=== PATIENT | female | born 1980 | race Caucasian/White ===

== ENCOUNTER → 2019-10-16 | Outpatient (CLI) | payer OTHER ==
--- NOTE | 2019-10-16 13:58 | KCIC ---
2 views chest and right-sided rib study dated 10/16/2019. No comparison available. CLINICAL INDICATION: Right-sided rib pain. FINDINGS: PA and lateral views obtained. Heart and mediastinal contours within normal limits. Lungs are somewhat hyperinflated but otherwise clear. No consolidation or pleural effusion. No pneumothorax. Dedicated views of the right-sided ribs show no evidence of displaced right rib fracture. No acute bony abnormality. IMPRESSION: 1. No acute radiographic abnormality. No evidence of displaced right rib fracture. Electronically signed by: Eran Goodman MD (10/16/2019 1:55 PM) [id number]
== END | disposition home or self-care (01) ==
LOC: KCIC 10:45
PROVIDERS: ATTEND Physician Assistant Medical
DX: R07.81 Pleurodynia (principal)
CPT/HCPCS: 71046; 71100

== ENCOUNTER → 2021-02-23 | Outpatient (CLI) | payer OTHER ==
--- NOTE | 2021-02-23 17:31 | KCIC ---
EXAM: Right hip and pelvis, 2 views. HISTORY: Pain. COMPARISON: None. FINDINGS: A frontal view of the pelvis and frog-leg view of the right hip are obtained. There is no f racture, dislocation or subluxation. There is a small sclerotic lesion within the right femoral neck. There is degenerative change at the lumbosacral junction. There is an incidental contraceptive devic e or pessary within the vagina. IMPRESSION: 1. No acute osseous finding. 2. Small sclerotic lesion within the right femoral neck. In the absence of known malignancy, this lik juliette a bone [place]. Electronically signed by: Colleen Muñoz MD (02/23/2021 5:29 PM) [facility]
== END ==
LOC: KCIC 11:41
PROVIDERS: ATTEND Family Medicine
DX: M89.8X8 Other specified disorders of bone, other site (principal); M25.551 Pain in right hip; M47.817 Spondylosis without myelopathy or radiculopathy, lumbosacral region
CPT/HCPCS: 73501

== ENCOUNTER 2021-03-31 10:02 | Emergency (ER) | payer MEDICAID, OTHER ==
[~2021-03-31] VITALS: Ht 165.1 cm; Wt 62.2 kg
--- NOTE | 2021-03-31 10:32 | PHYS DOC ---
General Adult EDM: Chief Complaint: RIB PAIN HPI: HPI: Patient is a 40 year old female who presents to ER due to right-sided chest pain that been going on for 3 weeks. Patient described pain as sharp stabbing pain, radiated to her right shoulder. Patient is a smoker, she is also on hormone replacement therapy. Patient denies any recent travel or operation, denies history of blood clot disorder. Patient has no history of diabetic or hypertension. The chest pain is worse with breathing or cough. Review of Systems: Review of Systems: Constitutional: Denies fever or chills. [] Eyes: Denies change in visual acuity. [] HENT: Denies nasal congestion or sore throat. [] Respiratory: Denies cough or shortness of breath. [] Cardiovascular: Positive for chest pain, no edema GI: Denies abdominal pain, nausea, vomiting, bloody stools or diarrhea. [] : Denies dysuria. [] Musculoskeletal: Denies back pain or joint pain. [] Integument: Denies rash. [] Neurologic: Denies headache, focal weakness or sensory changes. [] Endocrine: Denies polyuria or polydipsia. [] Lymphatic: Denies swollen glands. [] Psychiatric: Denies depression or anxiety. [] Heart Score: C/O Chest Pain: Yes HEART Score for Chest Pain: HEART Score for Chest Pain Response (Comments) Value History Slighlty/Non-Suspicious 0 ECG Normal 0 Age < 45 0 Risk Factors No Risk Factors 0 Troponin < Normal Limit 0 Total 0 Risk Factors: Risk Factors: DM, Current or recent (<one month) smoker, HTN, HLP, family history of CAD, obesity. Risk Scores: Score 0 - 3: 2.5% MACE over next 6 weeks - Discharge Home Score 4 - 6: 20.3% MACE over next 6 weeks - Admit for Clinical Observation Score 7 - 10: 72.7% MACE over next 6 weeks - Early Invasive Strategies Allergies: Allergies: Allergies Coded Allergies Type Severity Reaction Last Updated Verified No Known Drug Allergies 03/31/21 No Physical Exam: PE: Constitutional: Well developed, well nourished, no acute distress, non-toxic appearance. [] HENT: Normocephalic, atraumatic, bilateral external ears normal, oropharynx moist, no oral exudates, nose normal. [] Eyes: PERRLA, EOMI, conjunctiva normal, no discharge. [] Neck: Normal range of motion, no tenderness, supple, no stridor. [] Cardiovascular:Heart rate regular rhythm, no murmur [] Lungs & Thorax: Bilateral breath sounds clear to auscultation ,right-sided chest is tender to palpation. No rash, no crepitus. Abdomen: Bowel sounds normal, soft, no tenderness, no masses, no pulsatile masses. [] Skin: Warm, dry, no erythema, no rash. [] Back: No tenderness, no CVA tenderness. [] Extremities: No tenderness, no cyanosis, no clubbing, ROM intact, no edema. [] Neurologic: Alert and oriented X 3, normal motor function, normal sensory function, no focal deficits noted. [] Psychologic: Affect normal, judgement normal, mood normal. [] Current Patient Data: Labs: Laboratory Tests Test 03/31/21 10:54 03/31/21 12:30 White Blood Count 8.9 x10^3/uL Red Blood Count 4.37 x10^6/uL Hemoglobin 12.9 g/dL Hematocrit 37.8 % Mean Corpuscular Volume 87 fL Mean Corpuscular Hemoglobin 30 pg Mean Corpuscular Hemoglobin Concent 34 g/dL Red Cell Distribution Width 14.5 % Platelet Count 446 x10^3/uL Neutrophils (%) (Auto) 57 % Lymphocytes (%) (Auto) 32 % Monocytes (%) (Auto) 6 % Eosinophils (%) (Auto) 4 % Basophils (%) (Auto) 1 % Neutrophils # (Auto) 5.0 x10^3/uL Lymphocytes # (Auto) 2.9 x10^3/uL Monocytes # (Auto) 0.6 x10^3/uL Eosinophils # (Auto) 0.3 x10^3/uL Basophils # (Auto) 0.1 x10^3/uL Sodium Level 140 mmol/L Potassium Level 3.6 mmol/L Chloride Level 107 mmol/L Carbon Dioxide Level 27 mmol/L Anion Gap 6 Blood Urea Nitrogen 15 mg/dL Creatinine 0.7 mg/dL Estimated GFR (Cockcroft-Gault) 93.6 BUN/Creatinine Ratio 21 Glucose Level 98 mg/dL Calcium Level 8.3 mg/dL Magnesium Level 2.2 mg/dL Total Bilirubin 0.4 mg/dL Aspartate Amino Transf (AST/SGOT) 22 U/L Alanine Aminotransferase (ALT/SGPT) 26 U/L Alkaline Phosphatase 113 U/L Troponin I Quantitative < 0.017 ng/mL Total Protein 7.0 g/dL Albumin 3.6 g/dL Albumin/Globulin Ratio 1.1 Lipase 77 U/L D-Dimer (Monika) 0.82 ug/mlFEU Current Medications Medications (Trade) Dose Ordered Sig/Ron Route PRN Reason Start Time Stop Time Status Last Admin Dose Admin Iohexol (Omnipaque 350 Mg/ml) 90 ml 1X ONCE IV 03/31/21 11:45 03/31/21 11:46 DC 03/31/21 12:04 Info (CONTRAST GIVEN -- Rx MONITORING) 1 each PRN DAILY PRN MC SEE COMMENTS 03/31/21 11:45 04/02/21 11:44 Acetaminophen (Tylenol) 1,000 mg 1X ONCE PO 03/31/21 12:30 03/31/21 12:32 DC 03/31/21 12:51 EKG: EKG: EKG was done at 1047, heart rate of 83 beats per minutes, sinus rhythm, no ST segment elevation, normal axis. Radiology/Procedures: Radiology/Procedures: [][facility] [address] [place] [address] IMAGING REPORT Addendum PATIENT: JOSEPH MILTON ACCOUNT: [id number] : 1980 LOCATION: ER AGE: 40 SEX: F EXAM STATUS: REG ER ORD. PHYSICIAN: GEE REYNA DO REASON: CHEST PAIN, SOA, EVALUATION FOR PE PROCEDURE: CT ANGIOGRAPHY CHEST ADDENDUM ADDENDUM #1 ADDENDUM: The impression should also include: 5. Acute appearing right lateral seventh rib fracture. Electronically signed by: Aletha Walters MD (03/31/2021 12:32 PM) [id number] ORIGINAL REPORT EXAM: CT ANGIOGRAPHY OF THE CHEST WITH AND WITHOUT CONTRAST. HISTORY: Chest pain, shortness of breath. TECHNIQUE: Computed tomographic angiography of the chest was performed before and after the intravenous administration of iodinated contrast. 3-D maximum intensity projections were also performed. One or more of the following individualized dose reduction techniques were utilized for this examination: 1. Automated exposure control. 2. Adjustment of the mA and/or kV according to patient size. 3. Use of iterative reconstruction technique. COMPARISON: None. FINDINGS: Images of the upper abdomen reveal a 5 mm hypoattenuating lesion in hepatic segment 7, likely a benign cyst or hemangioma. Another vague hypoattenuating region inferiorly in segment IVb spans 2.8 cm. This may represent focal fatty infiltration but is indeterminate. Bone windows reveal no suspicious lesions. There is a nondisplaced fracture of the right lateral seventh rib. No pulmonary emboli are identified. There is no aortic dissection or aneurysm. Prominent right hilar lymph nodes measure up to 12 x 9 mm on image 65. There are no enlarged mediastinal or axillary nodes. There is no pleural or pericardial effusion. The heart is not enlarged. Windows reveal minimal subpleural interstitial line thickening in the bases. Mi ld centrilobular emphysema is suspected. IMPRESSION: 1. No pulmonary embolism. 2. Suspect mild centrilobular emphysema. Mild subpleural interstitial line thickening in the bases may represent atelectasis or early interstitial lung disease. 3. Mildly prominent bilateral hilar lymph nodes are likely reactive. 4. A 2.8 cm hypoattenuating region in hepatic segment IVb may reflect focal fatty infiltration but is indeterminate. MRI with and without contrast could further characterize if the diagnosis is not already known. Electronically signed by: Aletha Walters MD (03/31/2021 12:21 PM) [id number] DICTATED AND SIGNED BY: JAVIER WALTERS MD DATE: 03/31/21 1232 CC: GEE REYNA DO; DELILAH BARKSDALE MD ~ EXAM: CT ANGIOGRAPHY OF THE CHEST WITH AND WITHOUT CONTRAST. HISTORY: Chest pain, shortness of breath. TECHNIQUE: Computed tomographic angiography of the chest was performed before and after the intravenous administration of iodinated contrast. 3-D maximum intensity projections were also performed. One or more of the following individualized dose reduction techniques were utilized for this examination: 1. Automated exposure control. 2. Adjustment of the mA and/or kV according to patient size. 3. Use of iterative reconstruction technique. COMPARISON: None. FINDINGS: Images of the upper abdomen reveal a 5 mm hypoattenuating lesion in hepatic segment 7, likely a benign cyst or hemangioma. Another vague hypoattenuating region inferiorly in segment IVb spans 2.8 cm. This may represent focal fatty infiltration but is indeterminate. Bone windows reveal no suspicious lesions. There is a nondisplaced fracture of the right lateral seventh rib. No pulmonary emboli are identified. There is no aortic dissection or aneurysm. Prominent right hilar lymph nodes measure up to 12 x 9 mm on image 65. There are no enlarged mediastinal or axillary nodes. There is no pleural or pericardial effusion. The heart is not enlarged. Windows reveal minimal subpleural interstitial line thickening in the bases. Mild centrilobular emphysema is suspected. IMPRESSION: 1. No pulmonary embolism. 2. Suspect mild centrilobular emphysema. Mild subpleural interstitial line thickening in the bases may represent atelectasis or early interstitial lung disease. 3. Mildly prominent bilateral hilar lymph nodes are likely reactive. 4. A 2.8 cm hypoattenuating region in hepatic segment IVb may reflect focal fatty infiltration but is indeterminate. MRI with and without contrast could further characterize if the diagnosis is not already known. Electronically signed by: Aletha Walters MD (03/31/2021 12:21 PM) [id number] DICTATED and SIGNED BY: JAVIER WALTERS MD DATE: 03/31/21 [id number] 0 Course & Med Decision Making: Course & Med Decision Making Pertinent Labs and Imaging studies reviewed. (See chart for details) Patient is a 40-year-old female who presented to ER due to right-sided rib pain, CTA her chest did not show any evidence of PE or infiltration. Patient does have an acute fracture of the right seventh rib, which causes her to have the chest pain. Patient also had an incidental finding of a 2.8 cm hypodensity area in his liver area. Discussed with his family physician Dr. Barksdale who will arrange for follow-up outpatient for further evaluation and treatment. Ling Disclaimer: Ling Disclaimer: This electronic medical record was generated, in whole or in part, using a voice recognition dictation system. Departure Departure Impression: Primary Impression: Right rib fracture Disposition: 01 HOME / SELF CARE / HOMELESS Condition: STABLE Referrals: DELILAH BARKSDALE MD (PCP) Please call your family physician for follow up this week Patient Instructions: Rib Fracture Additional Instructions: Thank you for visiting our Emergency Department. We appreciate you trusting us with your care. If any additional problems come up don't hesitate to return to visit us. Please follow up with your primary care provider so they can plan additional care if needed and know about the problem that you had. If symptoms worsen come back to the Emergency Department. Any concerning symptoms that start such as chest pain, shortness of air, weakness or numbness on one side of the body, running high fevers or any other concerning symptoms return to the ER. GEE REYNA DO March 31, 2021 10:32
[2021-03-31 11:24] LABS: BASO # 0.1 x10^3/uL (0.0-0.2); BASO % 1 % (0-3); EOS # 0.3 x10^3/uL (0.0-0.7); EOS % 4 % (0-3); HEMATOCRIT 37.8 % (36.0-47.0); HEMOGLOBIN 12.9 g/dL (12.0-15.5); LYMPH # 2.9 x10^3/uL (1.0-4.8); LYMPH % 32 % (24-48); MEAN CORPUSCULAR HEMOGLOBIN 30 pg (25-35); MEAN CORPUSCULAR HGB CONC 34 g/dL (31-37); MEAN CORPUSCULAR VOLUME 87 fL (79-100); MONO # 0.6 x10^3/uL (0.0-1.1); MONO % 6 % (0-9); NEUT % 57 % (31-73); PLATELET COUNT 446 x10^3/uL (140-400); RED BLOOD COUNT 4.37 x10^6/uL (3.50-5.40); RED CELL DISTRIBUTION WIDTH 14.5 % (11.5-14.5); WHITE BLOOD COUNT 8.9 x10^3/uL (4.0-11.0)
[2021-03-31] MEDS ORDERED: CONTRAST GIVEN. MC PRN (11:45)
[2021-03-31 11:46] LABS: CALCIUM 8.3 mg/dL (8.5-10.1); CREATININE 0.7 mg/dL (0.6-1.0); GFR 93.6; POTASSIUM 3.6 mmol/L (3.5-5.1)
[2021-03-31 11:54] LABS: ALBUMIN 3.6 g/dL (3.4-5.0); ALBUMIN/GLOBULIN RATIO 1.1 (1.0-1.7); MAGNESIUM 2.2 mg/dL (1.8-2.4); TOTAL BILIRUBIN 0.4 mg/dL (0.2-1.0)
[2021-03-31] MEDS: IOHEXOL 350 MG/ML 100 ML VIAL. IV ONE (12:04)
--- NOTE | 2021-03-31 12:23 | RAD ---
EXAM: CT ANGIOGRAPHY OF THE CHEST WITH AND WITHOUT CONTRAST. HISTORY: Chest pain, shortness of breath. TECHNIQUE: Computed tomographic angiography of the chest was performed before and after the intraveno us administration of iodinated contrast. 3-D maximum intensity projections were also performed. One o r more of the following individualized dose reduction techniques were utilized for this examination: 1. Automated exposure control. 2. Adjustment of the mA and/or kV according to patient size. 3. Use of iterative reconstruction technique. COMPARISON: None. FINDINGS: Images of the upper abdomen reveal a 5 mm hypoattenuating lesion in hepatic segment 7, like ly a benign cyst or hemangioma. Another vague hypoattenuating region inferiorly in segment IVb spans 2.8 cm. This may represent focal fatty infiltration but is indeterminate. Bone windows reveal no susp icious lesions. There is a nondisplaced fracture of the right lateral seventh rib. No pulmonary emboli are identified. There is no aortic dissection or aneurysm. Prominent right hilar lymph nodes measure up to 12 x 9 mm on image 65. There are no enlarged mediasti nal or axillary nodes. There is no pleural or pericardial effusion. The heart is not enlarged. Windows reveal minimal subpleural interstitial line thickening in the bases. Mild centrilobular emphy sema is suspected. IMPRESSION: 1. No pulmonary embolism. 2. Suspect mild centrilobular emphysema. Mild subpleural interstitial line thickening in the bases ma y represent atelectasis or early interstitial lung disease. 3. Mildly prominent bilateral hilar lymph nodes are likely reactive. 4. A 2.8 cm hypoattenuating region in hepatic segment IVb may reflect focal fatty infiltration but is indeterminate. MRI with and without contrast could further characterize if the diagnosis is not alre eliseo known. Electronically signed by: Aletha Walters MD (03/31/2021 12:21 PM) [id number]
[2021-03-31] MEDS: ACETAMINOPHEN 500 MG TABLET PO ONE (12:51)
[2021-03-31 12:59] VITALS: BP 115/72
--- NOTE | 2021-03-31 15:53 | EKG ---
[facility] [address] [place] [address] Test Date: 2021-03-31 Test Time: 10:42:15 Pat Name: JOSEPH MILTON Department: Room: Gender: F [employer]r: : 1980 Requested By: GEE REYNA Order Number: [id number] Reading MD: Measurements Intervals Hondo Rate: 83 P: 59 MD: 130 QRS: 76 QRSD: 80 T: 60 QT: 374 QTc: 445 Interpretive Statements SINUS RHYTHM NORMAL ECG RI6.02 No previous ECG available for comparison
== END 2021-03-31 13:24 | disposition home or self-care (01) ==
LOC: ER 10:02
DX: S22.31XA Fracture of one rib, right side, initial encounter for closed fracture (principal); F17.200 Nicotine dependence, unspecified, uncomplicated; X58.XXXA Exposure to other specified factors, initial encounter; Y93.89 Activity, other specified; Y92.89 Other specified places as the place of occurrence of the external cause; Y99.8 Other external cause status
CPT/HCPCS: 36415; 71275; 80053; 83690; 83735; 84484; 85025; 85379; 93005; 99285; Q9967